=== PATIENT | female | born 1950 | race Caucasian/White ===

== ENCOUNTER → 2017-06-05 | Outpatient (CLI) | payer OTHER | LOC: BMCIMAGING 09:51 | PROVIDERS: ATTEND Internal Medicine | DX: R05 Cough (principal) ==

== ENCOUNTER 2017-06-26 11:03 | Emergency (ER) | payer OTHER ==
[2017-06-26 11:07] VITALS: TEMP 97.5
[2017-06-26] MEDS ORDERED: ONDANSETRON 4 MG/2 ML VIAL ONE ×2 (11:30→16:00)
[2017-06-26] MEDS ORDERED: ONDANSETRON 4 MG/2 ML VIAL IVP ONE ×2 (11:31→16:01)
[2017-06-26] MEDS ORDERED: NS 1,000 ML IV ONE ×2 (11:32→14:18)
--- NOTE | 2017-06-26 11:34 | EDPHY ---
General Narrative: CHIEF COMPLAINT: Flank and abdominal pain HISTORY OF PRESENT ILLNESS: Patient complains of sudden onset of abdominal and flank pain. Started this morning. It is right upper quadrant and right-sided. It is severe. No position of comfort. Nausea but no vomiting. No fever chills. No trauma or injury. No constipation or diarrhea. No burping. No no bright red or dark tarry stools. Status post cholecystectomy. No history of abdominal pathology otherwise. No other associated complaints or modifying factors REVIEW OF SYSTEMS: Ten systems reviewed and are negative unless otherwise noted in the HPI PCP: Dr. Mejia SPECIALISTS: None PAST MEDICAL HISTORY: No active diagnoses PAST SURGICAL HISTORY: Cholecystectomy, hysterectomy, right shoulder hemiarthroplasty SOCIAL HISTORY: Nonsmoker. Occasional alcohol. No drugs FAMILY HISTORY: Noncontributory EXAMINATION General Appearance: Alert, no distress, in obvious discomfort Head: normocephalic, atraumatic Eyes: Pupils equal and round, no conjunctival pallor or injection ENT, Mouth: Mucous membranes moist. Airway patent Neck: Normal inspection, supple, non-tender Respiratory: Lungs are clear to auscultation. No wheezing, rhonchi or crackles Cardiovascular: Regular rate and rhythm. No murmur Gastrointestinal: Abdomen is soft and nondistended. There is tenderness in the upper quadrant on the right and right lower quadrant. No point tenderness. Negative McBurney. Negative psoas. Moderate right CVA tenderness. No distention or rigidity. No guarding. Back: non-tender, no bony abnormalities Neurological: A&O, nonfocal, normal mental status Skin: Warm and dry, no rash. No petechiae or purpura Extremities: Nontender, no pedal edema. Symmetric range of motion Psychiatric: Mood and affect normal DIFFERENTIAL DIAGNOSES: Including but not limited to renal colic, nephrolithiasis, ureterolithiasis, colitis, diverticulitis, appendicitis MDM: 11:33 a.m. Right-sided flank and abdominal pain. The pain actually started periumbilical. She is in significant amount of pain but in no acute distress. I have ordered laboratory studies, urinalysis, IV fluid, IV pain medication. Plan for CT scan of the abdomen pelvis. I would like to see the urinalysis prior to ordering to determine if this is to rule out stone versus other more likely etiology. 12:30 p.m. Laboratory studies thus far negative. Urinalysis is pending. I have ordered CT scan of the abdomen pelvis to rule out possibility of stone as there is no indication of infection on laboratory studies thus far. She is feeling significantly better after the morphine 1:15 p.m. Case discussed with radiologist Dr. Castro. There is a stone in the right distal ureter near the UVJ measuring approximately 4 x 3 mm. There is an incidental note in the left kidney as documented in the report. Recommend outpatient follow up with Urology for this. 1:30 p.m. Urinalysis shows what is likely a contaminated specimen, but I will order Rocephin for the possibility of infection and Toradol for her pain. 2:10 p.m. Patient re-evaluated. I have updated her regarding the CT scan findings, including the incidental abnormality in the left kidney. She is feeling better but not resolved. I do feel that she will be stable for discharge home, but I would like her to receive an additional L of fluid prior to doing so. Re- evaluate after this. 3:20 p.m. Patient re-evaluated. She was feeling better and then had a sudden change in her pain. The area that she is pointing indicates to me the calculus is likely moving into the bladder. I offered admission for pain control, but she feels that she can tolerate the pain and wants to go home. I do feel that she is stable for discharge home. I also feel that she is about to pass the stone. She informed that she is leaving [facility] Thursday for [place] for 6 weeks. I will provide her the Urology follow-up information here should she change her plans. But she says that she will find a urologist to see in [place] for definitive care of the stone, and also for further workup of the left renal incidental finding. We discussed ED precautions in the interim including worsening pain, fever, nausea vomiting. Discharged home with Keflex and pain medication. She is comfortable this plan. I have answered all her questions. She is discharged in stable condition. - History Smoking Status: Former smoker - Objective Vital Signs: Initial Vital Signs Temperature (C) 97.5 F 06/26/17 11:05 Heart Rate 58 L 06/26/17 11:05 Respiratory Rate 20 06/26/17 11:05 Blood Pressure 147/87 H 06/26/17 11:05 O2 Sat (%) 96 06/26/17 11:05 O2 Delivery Mode Room Air Allergies/Adverse Reactions: No Known Allergies Allergy (Unverified 05/14/16 12:54) Home Medications: Medication Instructions Recorded Amoxicillin 2,000 mg PO PRN PRN 05/14/16 Diazepam 5 - 10 mg PO DAILY PRN 05/14/16 Herbals/Supplements -Info Only 1 ea PO DAILY 05/14/16 Sertraline HCl [Zoloft 50mg (*)] 25 mg PO DAILY 05/14/16 Acetaminophen [Tylenol 325mg (*)] 650 mg PO Q4 PRN #0 tab 05/15/16 Cephalexin [Keflex (*)] 500 mg PO TID #30 cap 06/26/17 Ondansetron Odt [Zofran Odt 4 mg 4 mg PO Q6 PRN #12 tab 06/26/17 (*)] oxyCODONE HCL/ACETAMINOPHEN 1 each PO Q4-6PRN PRN #13 tablet 06/26/17 [Percocet 5-325 mg Tablet] Laboratory Results: Laboratory Results 06/26/17 11:40 06/26/17 11:40 Medications Given: Discontinued Medications Sodium Chloride (Ns) 1,000 mls @ 0 mls/hr IV EDNOW ONE; Wide Open PRN Reason: Protocol Stop: 06/26/17 11:33 Last Admin: 06/26/17 11:41 Dose: 1,000 mls Ceftriaxone Sodium/Dextrose (Rocephin 1 Gm (Premix)) 50 mls @ 100 mls/hr IV EDNOW ONE PRN Reason: Protocol Stop: 06/26/17 13:46 Last Admin: 06/26/17 13:53 Dose: 50 mls Sodium Chloride (Ns) 1,000 mls @ 0 mls/hr IV EDNOW ONE; Wide Open PRN Reason: Protocol Stop: 06/26/17 14:19 Last Admin: 06/26/17 14:43 Dose: 1,000 mls Ketorolac Tromethamine (Toradol) 15 mg IVP EDNOW ONE Stop: 06/26/17 13:18 Last Admin: 06/26/17 13:55 Dose: 15 mg Morphine Sulfate (Morphine) 4 mg IVP EDNOW ONE Stop: 06/26/17 11:32 Last Admin: 06/26/17 11:41 Dose: 4 mg Morphine Sulfate (Morphine) 4 mg IVP EDNOW ONE Stop: 06/26/17 12:39 Last Admin: 06/26/17 12:42 Dose: 4 mg Morphine Sulfate (Morphine) 4 mg IVP EDNOW ONE Stop: 06/26/17 15:15 Last Admin: 06/26/17 15:31 Dose: 4 mg Ondansetron HCl (Zofran) 4 mg IVP EDNOW ONE Stop: 06/26/17 11:32 Last Admin: 06/26/17 11:41 Dose: 4 mg Ondansetron HCl (Zofran) 4 mg IVP EDNOW ONE Stop: 06/26/17 16:02 Last Admin: 06/26/17 16:03 Dose: 4 mg Departure - Departure Disposition: Home, Routine, Self-Care Clinical Impression: Ureteral calculus, right, Abnormal finding on diagnostic imaging of left kidney Abdominal pain Qualifiers: Abdominal location: right upper quadrant Qualified Code(s): R10.11 - Right upper quadrant pain Condition: Good Instructions: Ureteral Stones (ED) Additional Instructions: 1. Increase fluid intake 2. Pain medication as prescribed as needed 3. Nausea medication as prescribed as needed 4. Keflex as prescribed to completion 5. Follow up with urologist for definitive care and for further imaging of the incidental finding of the right kidney Referrals: UNKNOWN,PCP [Other] - As per Instructions Mariah Fuentes MD [Medical Doctor] - As per Instructions Prescriptions: Cephalexin [Keflex (*)] 500 mg PO TID #30 cap Ondansetron Odt [Zofran Odt 4 mg (*)] 4 mg PO Q6 PRN #12 tab PRN Reason: Nausea/Vomiting, Use 1st oxyCODONE HCL/ACETAMINOPHEN [Percocet 5-325 mg Tablet] 1 each PO Q4-6PRN PRN # 13 tablet PRN Reason: Pain, Breakthrough
[2017-06-26 12:00] LABS: % IMMATURE GRANULYOCYTES 0.3 % (0.0-1.1); ABSOLUTE IMMATURE GRANULOCYTES 0.02 10^3/uL (0.00-0.10); ADD DIFF? NO; ADD MORPH? NO; ADD SCAN? NO; ATYPICAL LYMPHOCYTE FLAG 0 (0-99); FRAGMENT RBC FLAG 0 (0-99); HEMATOCRIT 36.1 % (38.0-47.0); HEMOGLOBIN 12.7 g/dL (12.6-16.3); LEFT SHIFT FLG 0 (0-99); LIPEMIA HEMOLYSIS FLAG 90 (0-99); MEAN CELL HEMOGLOBIN 33.6 pg (27.9-34.1); MEAN CELL HEMOGLOBIN CONCENTR. 35.2 g/dL (32.4-36.7); MEAN CELL VOLUME 95.5 fL (81.5-99.8); MEAN PLATELET VOLUME 10.6 fL (8.7-11.7); PLATELET CLUMPS FLAG 0 (0-99); PLATELET COUNT 172 10^3/uL (150-400); RED BLOOD CELL COUNT 3.78 10^6/uL (4.18-5.33); RED CELL DISTRIBUTION WIDTH 12.9 % (11.5-15.2)
[2017-06-26 12:14] LABS: ALANINE AMINOTRANSFERASE 29 IU/L (9-52); ALBUMIN 3.9 g/dL (3.5-5.0); ALKALINE PHOSPHATASE 53 IU/L (38-126); ANION GAP 12 mEq/L (8-16); ASPARTATE AMINOTRANSFERASE 25 IU/L (14-46); BILIRUBIN,TOTAL 0.3 mg/dL (0.1-1.4); BILIRUBIN-CONJUGATED 0.2 mg/dL (0.0-0.5); BILIRUBIN-UNCONJUGATED 0.1 mg/dL (0.0-1.1); CALCIUM 8.8 mg/dL (8.5-10.4); CARBON DIOXIDE 24 mEq/l (22-31); CHLORIDE 106 mEq/L (97-110); CREATININE 0.6 mg/dL (0.6-1.0); GLOMERULAR FILTRATION RATE > 60; GLUCOSE 109 mg/dL (70-100); POTASSIUM 3.6 mEq/L (3.5-5.2); SODIUM 142 mEq/L (134-144); TOTAL PROTEIN 6.3 g/dL (6.3-8.2)
[2017-06-26 12:49] LABS: COLOR YELLOW; LEUKOCYTE ESTERASE,URINE TRACE (NEGATIVE); NITRITE,URINE NEGATIVE (NEGATIVE)
[2017-06-26 13:00] LABS: BACTERIA TRACE /hpf (NONE SEEN); MUCUS TRACE /lpf (NONE-1+); WBC,URINE 25-50 /hpf (0-3)
[2017-06-26] MEDS ORDERED: KETOROLAC 15 MG/1 ML SDV IVP ONE (13:17)
[2017-06-26 14:06] VITALS: RESP 16
[2017-06-26 16:35] VITALS: BP 125/71; PULSE 64; O2SAT 93
== END 2017-06-26 16:36 | disposition home or self-care (01) ==
DX: N20.1 Calculus of ureter (principal); R93.422 Abnormal radiologic findings on diagnostic imaging of left kidney; E86.9 Volume depletion, unspecified; Z87.891 Personal history of nicotine dependence; Z90.49 Acquired absence of other specified parts of digestive tract; Z90.710 Acquired absence of both cervix and uterus
CPT/HCPCS: 74176; 96361; 96365; 96375; 96376; 99285; J0696; J1885; J2405; 82947-QW